=== PATIENT | female | born 1980 | race American Indian/Alaskan Native ===

== ENCOUNTER 2021-02-20 14:08 | Emergency (ER) | payer MEDICAID ==
[2021-02-20 15:09] LABS: Basophils % (Auto) 0.5 % (0.0-1.8); Eosinophils # (Auto) 0.2 K/mm3 (0.0-0.4); Hematocrit 45.3 % (30.3-42.9); Hemoglobin 15.6 gm/dl (10.1-14.3); Lymphocytes # (Auto) 2.8 K/mm3 (1.2-5.4); Lymphocytes % (Auto) 30.3 % (13.4-35.0); Mean Corpuscular HGB Conc 34 % (30-34); Mean Corpuscular Volume 87 fl (79-97); Monocytes # (Auto) 0.5 K/mm3 (0.0-0.8); Monocytes % (Auto) 5.1 % (0.0-7.3); Platelet Count 289 K/mm3 (140-440); Red Blood Count 5.19 M/mm3 (3.65-5.03)
[2021-02-20 15:16] LABS: Alanine Aminotransferase 25 units/L (7-56); Albumin 4.3 g/dL (3.9-5); Blood Urea Nitrogen 7 mg/dL (7-17); Calcium 9.2 mg/dL (8.4-10.2); Hemolysis Index 30
[2021-02-20 15:24] LABS: BUN/Creatinine Ratio 14
[2021-02-20 16:09] LABS: Bacteria,Urine 1+ /HPF (Negative); Bilirubin,Urine NEG (Negative); Blood,Urine NEG (Negative); Color,Urine Yellow (Yellow); Mucus,Urine FEW /HPF; Protein,Urine <15 mg/dL mg/dL (Negative); Urobilinogen,Urine < 2.0 mg/dL (<2.0)
--- NOTE | 2021-02-20 16:50 | Emergency Department Report ---
ED General Adult HPI - General Chief complaint: Medical Clearance Stated complaint: HIGH BLOOD SUGAR Time Seen by Provider: 02/20/21 16:45 Source: patient Mode of arrival: Ambulatory Limitations: No Limitations - History of Present Illness Initial comments: 41-year-old female patient presents with complaints of elevated blood glucose x1 week. She denies any previous history of diabetes, but states that she tested her blood sugar 1 week ago with her sister's machine when she was feeling dizzy. She states her blood glucose at that time was 449. Patient states she noted her glucose to be in the 300s today and called her primary care doctor who ins tructed her to come into the emergency department for treatment. Patient states she is scheduled an appointment with her primary care doctor for this Thursday. She denies any headache, dizziness, chest pain, shortness of breath, urinary symptoms, abdominal pain, or other past medical history. -: Sudden - Related Data Previous Rx's Medication Instructions Recorded Last Taken Type Sulfamethoxazole/Trimethoprim 1 each PO BID 5 Days #10 tablet 02/20/21 Unknown Rx [Bactrim DS TAB] metFORMIN [Glucophage] 500 mg PO QDAY #30 tab 02/20/21 Unknown Rx Allergies Allergy/AdvReac Type Severity Reaction Status Date / Time Penicillins AdvReac Unknown Verified 02/20/21 19:00 prochlorperazine AdvReac Unknown Verified 02/20/21 19:00 [From Compazine] ED Review of Systems ROS: Stated complaint: HIGH BLOOD SUGAR Other details as noted in HPI Constitutional: denies: chills, fever, malaise Respiratory: denies: shortness of breath Cardiovascular: denies: chest pain Gastrointestinal: denies: abdominal pain, nausea, vomiting Genitourinary: denies: dysuria, frequency, hematuria, discharge, abnormal menses, dyspareunia Musculoskeletal: denies: back pain Skin: denies: change in color Neurological: headache. denies: numbness, paresthesias Hematological/Lymphatic: denies: swollen glands ED Past Medical Hx - Past Medical History Previous Medical History?: Yes Hx Asthma: Yes - Surgical History Past Surgical History?: Yes Additional Surgical History: left wrist surgery - Medications Home Medications: Home Medications Medication Instructions Recorded Confirmed Last Taken Type Sulfamethoxazole/Trimethoprim 1 each PO BID 5 Days #10 tablet 02/20/21 Unknown Rx [Bactrim DS TAB] metFORMIN [Glucophage] 500 mg PO QDAY #30 tab 02/20/21 Unknown Rx ED Physical Exam - General Limitations: No Limitations General appearance: alert, in no apparent distress, obese - Head Head exam: Present: atraumatic, normocephalic - Eye Eye exam: Present: normal appearance. Absent: scleral icterus - Neck Neck exam: Present: normal inspection, full ROM - Respiratory Respiratory exam: Present: normal lung sounds bilaterally. Absent: respiratory distress - Cardiovascular Cardiovascular Exam: Present: regular rate, normal rhythm - Extremities Exam Extremities exam: Present: full ROM - Back Exam Back exam: Present: normal inspection, full ROM - Neurological Exam Neurological exam: Present: alert, oriented X3, normal gait - Psychiatric Psychiatric exam: Present: normal affect, normal mood - Skin Skin exam: Present: warm, dry, intact, normal color. Absent: rash ED Course Vital Signs 02/20/21 02/20/21 14:16 20:30 Temperature 98.7 F Pulse Rate 79 84 Respiratory 18 16 Rate Blood Pressure 140/89 [Right] O2 Sat by Pulse 98 99 Oximetry ED Medical Decision Making - Lab Data Result diagrams: 02/20/21 14:31 02/20/21 14:31 Lab Results 02/20/21 02/20/21 02/20/21 Range/Units 14:31 14:31 14:31 WBC 9.2 (4.5-11.0) K/mm3 RBC 5.19 H (3.65-5.03) M/mm3 Hgb 15.6 H (10.1-14.3) gm/dl Hct 45.3 H (30.3-42.9) % MCV 87 (79-97) fl MCH 30 (28-32) pg MCHC 34 (30-34) % RDW 13.0 L (13.2-15.2) % Plt Count 289 (140-440) K/mm3 Lymph % (Auto) 30.3 (13.4-35.0) % Turner % (Auto) 5.1 (0.0-7.3) % Eos % (Auto) 2.0 (0.0-4.3) % Baso % (Auto) 0.5 (0.0-1.8) % Lymph # (Auto) 2.8 (1.2-5.4) K/mm3 Turner # (Auto) 0.5 (0.0-0.8) K/mm3 Eos # (Auto) 0.2 (0.0-0.4) K/mm3 Baso # (Auto) 0.0 (0.0-0.1) K/mm3 Seg Neutrophils % 62.1 (40.0-70.0) % Seg Neutrophils # 5.7 (1.8-7.7) K/mm3 VBG pH (7.320-7.420) Sodium 134 L (137-145) mmol/L Potassium 3.9 (3.6-5.0) mmol/L Chloride 99.3 (98-107) mmol/L Carbon Dioxide 23 (22-30) mmol/L Anion Gap 16 mmol/L BUN 7 (7-17) mg/dL Creatinine 0.5 L (0.6-1.2) mg/dL Estimated GFR > 60 ml/min BUN/Creatinine Ratio 14 % Glucose 357 H (65-100) mg/dL POC Glucose (70-105) mg/dL Calcium 9.2 (8.4-10.2) mg/dL Total Bilirubin 0.70 (0.1-1.2) mg/dL AST 22 (5-40) units/L ALT 25 (7-56) units/L Alkaline Phosphatase 129 (35-129) units/L Total Protein 7.0 (6.3-8.2) g/dL Albumin 4.3 (3.9-5) g/dL Albumin/Globulin Ratio 1.6 % HCG, Quant < 2 (0-4) mIU/mL Urine Color (Yellow) Urine Turbidity (Clear) Urine pH (5.0-7.0) Ur Specific [place] (1.003-1.030) Urine Protein (Negative) mg/dL Urine Glucose (UA) (Negative) mg/dL Urine Ketones (Negative) mg/dL Urine Blood (Negative) Urine Nitrite (Negative) Urine Bilirubin (Negative) Urine Urobilinogen (<2.0) mg/dL Ur Leukocyte Esterase (Negative) Urine WBC (Auto) (0.0-6.0) /HPF Urine RBC (Auto) (0.0-6.0) /HPF U Epithel Cells (Auto) (0-13.0) /HPF Urine Bacteria (Auto) (Negative) /HPF Urine Mucus /HPF 05/10/0102/20/21 02/20/21 Range/Units 14:31 20:31 Unknown WBC (4.5-11.0) K/mm3 RBC (3.65-5.03) M/mm3 Hgb (10.1-14.3) gm/dl Hct (30.3-42.9) % MCV (79-97) fl MCH (28-32) pg MCHC (30-34) % RDW (13.2-15.2) % Plt Count (140-440) K/mm3 Lymph % (Auto) (13.4-35.0) % Turner % (Auto) (0.0-7.3) % Eos % (Auto) (0.0-4.3) % Baso % (Auto) (0.0-1.8) % Lymph # (Auto) (1.2-5.4) K/mm3 Turner # (Auto) (0.0-0.8) K/mm3 Eos # (Auto) (0.0-0.4) K/mm3 Baso # (Auto) (0.0-0.1) K/mm3 Seg Neutrophils % (40.0-70.0) % Seg Neutrophils # (1.8-7.7) K/mm3 VBG pH 7.362 (7.320-7.420) Sodium (137-145) mmol/L Potassium (3.6-5.0) mmol/L Chloride (98-107) mmol/L Carbon Dioxide (22-30) mmol/L Anion Gap mmol/L BUN (7-17) mg/dL Creatinine (0.6-1.2) mg/dL Estimated GFR ml/min BUN/Creatinine Ratio % Glucose (65-100) mg/dL POC Glucose 227 H (70-105) mg/dL Calcium (8.4-10.2) mg/dL Total Bilirubin (0.1-1.2) mg/dL AST (5-40) units/L ALT (7-56) units/L Alkaline Phosphatase (35-129) units/L Total Protein (6.3-8.2) g/dL Albumin (3.9-5) g/dL Albumin/Globulin Ratio % HCG, Quant (0-4) mIU/mL Urine Color Yellow (Yellow) Urine Turbidity Clear (Clear) Urine pH 5.0 (5.0-7.0) Ur Specific [place] 1.036 H (1.003-1.030) Urine Protein <15 mg/dl (Negative) mg/dL Urine Glucose (UA) >=500 (Negative) mg/dL Urine Ketones Tr (Negative) mg/dL Urine Blood Neg (Negative) Urine Nitrite Neg (Negative) Urine Bilirubin Neg (Negative) Urine Urobilinogen < 2.0 (<2.0) mg/dL Ur Leukocyte Esterase Tr (Negative) Urine WBC (Auto) 13.0 H (0.0-6.0) /HPF Urine RBC (Auto) 21.0 (0.0-6.0) /HPF U Epithel Cells (Auto) 4.0 (0-13.0) /HPF Urine Bacteria (Auto) 1+ (Negative) /HPF Urine Mucus Few /HPF - Medical Decision Making 41-year-old female patient presents with complaints of elevated blood glucose x1 week. She denies any previous history of diabetes, but states that she tested her blood sugar 1 week ago with her sister's machine when she was feeling dizzy. She states her blood glucose at that time was 449. Patient states she noted her glucose to be in the 300s today and called her primary care doctor who instructed her to come into the emergency department for treatment. Patient states she is scheduled an appointment with her primary care doctor for this Thursday. She denies any headache, dizziness, chest pain, shortness of breath, urinary symptoms, abdominal pain, or other past medical history. Patient here with new onset diabetes. Blood glucose initially measured at 357. Venous pH is normal. UA shows small UTI. Will start patient on Metformin and prescribed Bactrim for UTI. Patient has a follow-up appointment scheduled in 2 days. Discussed signs and symptoms that should prompt immediate return to the emergency department in detail with patient who verbalizes understanding. She is well-appearing, her vitals are normal, she is stable for discharge home. Critical care attestation.: If time is entered above; I have spent that time in minutes in the direct care of this critically ill patient, excluding procedure time. ED Disposition Clinical Impression: New onset type 2 diabetes mellitus UTI (urinary tract infection) Qualifiers: Urinary tract infection type: acute cystitis Disposition: TO HOME OR SELFCARE Is pt being admited?: No Condition: Stable Instructions: Type 2 Diabetes Mellitus, Diagnosis, Adult, Urinary Tract Infection, Adult, [id number], Type 2 Diabetes Mellitus, Self Care, Adult, Metformin tablets, Diabetes Mellitus and Nutrition, Adult, Diabetes Mellitus Type 2 in Adults (ED) Additional Instructions: Is follow-up with your doctor as scheduled 02/22/2021 Prescriptions: Sulfamethoxazole/Trimethoprim [Bactrim DS TAB] 1 each PO BID 5 Days #10 tablet metFORMIN [Glucophage] 500 mg PO QDAY #30 tab Referrals: MARTIR NIEVES JR, MD [Primary Care Provider] - 3-5 Days Forms: Work/School Release Form(ED)
[2021-02-20] MEDS ORDERED: INSULIN REGULAR, HUMAN 100 UNITS/1 ML ONE (19:03)
[2021-02-20] MEDS ORDERED: SODIUM CHLORIDE 0.9% 1000 ML 1,000 ML ONE (19:03)
[2021-02-20] MEDS ORDERED: SODIUM CHLORIDE 0.9% 1000 ML 1,000 ML IV ONE (19:15)
[2021-02-20] MEDS ORDERED: INSULIN REGULAR, HUMAN 100 UNITS/1 ML SUB-Q ONE (19:30)
[2021-02-20 22:16] VITALS: BP 140/89
== END 2021-02-20 20:30 | disposition home or self-care (01) ==
LOC: ED 14:08
DX: E11.9 Type 2 diabetes mellitus without complications (principal); N39.0 Urinary tract infection, site not specified; J45.909 Unspecified asthma, uncomplicated; Z79.899 Other long term (current) drug therapy
CPT/HCPCS: 36415; 80053; 81001; 82805; 82962; 84702; 85025; 87086; 96360; 96372; 99283; J7030; J1815

== ENCOUNTER 2021-12-30 12:13 | Emergency (ER) | payer MEDICAID ==
[2021-12-30] MEDS ORDERED: SODIUM CHLORIDE 0.9% 1000 ML 1,000 ML IV ONE (15:00)
[2021-12-30 15:17] LABS: Hematocrit 41.6 % (30.3-42.9); Hemoglobin 14.4 gm/dl (10.1-14.3); Mean Corpuscular HGB Conc 35 % (30-34); Mean Corpuscular Volume 86 fl (79-97); Platelet Count 261 K/mm3 (140-440); Red Blood Count 4.85 M/mm3 (3.65-5.03); Red Cell Distribution Width 13.4 % (13.2-15.2)
[2021-12-30] MEDS ORDERED: CLINDAMYCIN 300 MG/50 mL 300 MG/50 ML BAG IV ONE (16:00)
[2021-12-30 16:15] LABS: Alanine Aminotransferase 33 units/L (7-56); Albumin 4.4 g/dL (3.9-5); Blood Urea Nitrogen 6 mg/dL (7-17); Calcium 9.5 mg/dL (8.4-10.2); Hemolysis Index 3
[2021-12-30 16:34] LABS: BUN/Creatinine Ratio 12
[2021-12-30] MEDS ORDERED: LIDOCAINE (1%) 10 MG/1 ML VIAL 20 ML MDV INFILTRATI ONE (18:00)
--- NOTE | 2021-12-30 18:23 | Emergency Department Report ---
Abscess Boil HPI - HPI Chief Complaint: Skin/Abscess/Foreign Body Stated Complaint: LARGE CYST ON BOTTOM Time Seen by Provider: 12/30/21 15:00 Duration: 6 Days Location: Perianal Severity: Moderate History: Yes Pain, Yes Purulent Drainage, No Fever, No Numbness, No Foreign Body, No Previous History, No Insect Bite HPI: Pt c/o abscess on right glute Home Medications: Previous Rx's Medication Instructions Recorded Last Taken Type Sulfamethoxazole/Trimethoprim 1 each PO BID 5 Days #10 tablet 02/20/21 Unknown Rx [Bactrim DS TAB] metFORMIN [Glucophage] 500 mg PO QDAY #30 tab 02/20/21 Unknown Rx Ibuprofen [Motrin] 800 mg PO Q8HR PRN #14 tablet 12/30/21 Unknown Rx clindamycin HCL [Clindamycin HCl] 300 mg PO TID #21 cap 12/30/21 Unknown Rx Allergies/Adverse Reactions: Allergies Allergy/AdvReac Type Severity Reaction Status Date / Time Penicillins AdvReac Unknown Verified 02/20/21 19:00 prochlorperazine AdvReac Unknown Verified 02/20/21 19:00 [From Compazine] ED Review of Systems ROS: Stated complaint: LARGE CYST ON BOTTOM Other details as noted in HPI Constitutional: denies: chills, fever Eyes: denies: eye pain, eye discharge, vision change ENT: denies: ear pain, throat pain Respiratory: denies: cough, shortness of breath, wheezing Cardiovascular: denies: chest pain, palpitations Endocrine: no symptoms reported Gastrointestinal: denies: abdominal pain, nausea, diarrhea Genitourinary: denies: urgency, dysuria, discharge Musculoskeletal: denies: back pain, joint swelling, arthralgia Skin: denies: rash, lesions Neurological: denies: headache, weakness, paresthesias Psychiatric: denies: anxiety, depression Hematological/Lymphatic: denies: easy bleeding, easy bruising ED Past Medical Hx - Past Medical History Hx Diabetes: Yes Hx Deep Vein Thrombosis: No Hx Pulmonary Embolism: No Hx Asthma: Yes - Surgical History Past Surgical History?: Yes Additional Surgical History: left wrist surgery - Social History Smoking Status: Never Smoker Substance Use Type: None - Medications Home Medications: Home Medications Medication Instructions Recorded Confirmed Last Taken Type Sulfamethoxazole/Trimethoprim 1 each PO BID 5 Days #10 tablet 05/12/21 Unknown Rx [Bactrim DS TAB] metFORMIN [Glucophage] 500 mg PO QDAY #30 tab 02/20/21 Unknown Rx Ibuprofen [Motrin] 800 mg PO Q8HR PRN #14 tablet 12/30/21 Unknown Rx clindamycin HCL [Clindamycin HCl] 300 mg PO TID #21 cap 12/30/21 Unknown Rx ED Abscess Boil Physical Exam - Exam General: Vital signs noted. No distress. Alert and acting appropriately. Size: 5 cm Exam: Yes Tenderness, Yes Fluctuance, Yes Surrounding Cellulites/Erythema, Yes Normal Neurologic Exam, Yes Normal Circulation, No Lymphangitis, No Crepitation, No Heart Murmur I & D Note - I & D Note I & D Note: right gluteal bsess. cleaned with betadin . anasthesia local using licoane 5 cc. blade 11, moderate amouht of pus. packed ith .05 inch pplain pack. 'dressed ED Course Vital Signs 12/30/21 12/30/21 12:51 13:16 Temperature 98.5 F Pulse Rate 120 H Respiratory 17 18 Rate Blood Pressure 161/93 O2 Sat by Pulse 93 97 Oximetry Critical care attestation.: If time is entered above; I have spent that time in minutes in the direct care of this critically ill patient, excluding procedure time. ED Medical Decision Making - Lab Data Result diagrams: 12/30/21 15:06 12/30/21 15:06 - Medical Decision Making I and D , fluids and abx given ED Disposition Clinical Impression: Abscess, gluteal, right Disposition: 01 HOME / SELF CARE / HOMELESS Is pt being admited?: No Does the pt Need Aspirin: No Condition: Stable Instructions: Skin Abscess, Incision and Drainage, Care After Prescriptions: clindamycin HCL [Clindamycin HCl] 300 mg PO TID #21 cap Ibuprofen [Motrin] 800 mg PO Q8HR PRN #14 tablet PRN Reason: Pain, Moderate (4-6) Referrals: PRIMARY CARE,MD [Primary Care Provider] - 3-5 Days Time of Disposition: 18:21
[2021-12-30 18:37] VITALS: BP 124/78
== END 2021-12-30 18:34 | disposition home or self-care (01) ==
LOC: ED 12:13
DX: L02.31 Cutaneous abscess of buttock (principal); E11.9 Type 2 diabetes mellitus without complications; J45.909 Unspecified asthma, uncomplicated; Z88.0 Allergy status to penicillin
CPT/HCPCS: 10060; 36415; 80053; 85027; 86140; 96365; 96366; 99283; J3490; J7030; Q0162

== ENCOUNTER 2022-01-01 12:05 | Emergency (ER) | payer MEDICAID ==
--- NOTE | 2022-01-01 17:15 | Emergency Department Report ---
ED Recheck HPI - General Chief Complaint: Skin/Abscess/Foreign Body Stated Complaint: PACKING REMOVAL Time Seen by Provider: 01/01/22 16:28 Source: patient Mode of arrival: Ambulatory Limitations: No Limitations - History of Present Illness Initial Comments: 41-year-old black female presents to the emergency department for recheck of wound. She states that she was seen here on 321 for abscess to perineum area, it was lanced and she was sent home with wound packing. She is here to have packing removed. She states that she has not yet started her p.o. antibiotics that she was previously prescribed because the pharmacy has not been able to fill them yet, but pain and swelling to abscess is significantly improved. States that she has noticed small amount of purulent drainage from area. She denies fever. Complaint: wound re-check Initial Visit For: abscess Returns Today for: wound recheck Symptoms Since Prior Visit: no new symptoms Context: planned re-check Associated Symptoms: denies: fever, chills, chest pain, shortness of breath, rash, malaise, [place], abdominal pain - Related Data Previous Rx's Medication Instructions Recorded Last Taken Type Sulfamethoxazole/Trimethoprim 1 each PO BID 5 Days #10 tablet 02/20/21 Unknown Rx [Bactrim DS TAB] metFORMIN [Glucophage] 500 mg PO QDAY #30 tab 02/20/21 Unknown Rx Ibuprofen [Motrin] 800 mg PO Q8HR PRN #14 tablet 12/30/21 Unknown Rx clindamycin HCL [Clindamycin HCl] 300 mg PO TID #21 cap 12/30/21 Unknown Rx Allergies Allergy/AdvReac Type Severity Reaction Status Date / Time Penicillins AdvReac Unknown Verified 02/20/21 19:00 prochlorperazine AdvReac Unknown Verified 02/20/21 19:00 [From Compazine] ED Review of Systems ROS: Stated complaint: PACKING REMOVAL Other details as noted in HPI Comment: All other systems reviewed and negative Constitutional: denies: chills, fever Respiratory: denies: cough, shortness of breath, SOB with exertion, SOB at rest Cardiovascular: denies: chest pain Gastrointestinal: denies: abdominal pain, nausea, vomiting Genitourinary: denies: urgency, dysuria, frequency, hematuria Musculoskeletal: denies: back pain Neurological: denies: headache, weakness ED Past Medical Hx - Past Medical History Hx Diabetes: Yes Hx Deep Vein Thrombosis: No Hx Pulmonary Embolism: No Hx Asthma: Yes - Surgical History Additional Surgical History: left wrist surgery - Social History Smoking Status: Never Smoker Substance Use Type: None - Medications Home Medications: Home Medications Medication Instructions Recorded Confirmed Last Taken Type Sulfamethoxazole/Trimethoprim 1 each PO BID 5 Days #10 tablet 02/20/21 Unknown Rx [Bactrim DS TAB] metFORMIN [Glucophage] 500 mg PO QDAY #30 tab 02/20/21 Unknown Rx Ibuprofen [Motrin] 800 mg PO Q8HR PRN #14 tablet 12/30/21 Unknown Rx clindamycin HCL [Clindamycin HCl] 300 mg PO TID #21 cap 12/30/21 Unknown Rx ED Physical Exam - General Limitations: No Limitations General appearance: alert, in no apparent distress - Eye Eye exam: Present: normal appearance. Absent: conjunctival injection - Neck Neck exam: Present: normal inspection. Absent: tenderness - Respiratory Respiratory exam: Absent: respiratory distress - Cardiovascular Cardiovascular Exam: Present: tachycardia - GI/Abdominal GI/Abdominal exam: Present: soft. Absent: distended - External exam: Absent: normal external exam (I&D incision noted to right perineum area near buttocks packing in place. Small amount of purulent drainage noted) - Extremities Exam Extremities exam: Present: normal inspection - Back Exam Back exam: Present: normal inspection - Neurological Exam Neurological exam: Present: alert, oriented X3 - Psychiatric Psychiatric exam: Present: normal affect, normal mood - Skin Skin exam: Present: warm, dry, intact, normal color ED Course Vital Signs 01/01/22 01/01/22 12:46 17:34 Temperature 98.6 F Pulse Rate 102 H 90 Respiratory 16 16 Rate Blood Pressure 147/90 136/88 [Left] O2 Sat by Pulse 97 99 Oximetry ED Recheck MDM - Differential Diagnosis Wound Recheck - Medical Decision Making 41-year-old black female presents to the emergency department for recheck of wound. She states that she was seen here on 321 for abscess to perineum area, it was lanced and she was sent home with wound packing. She is here to have packing removed. She states that she has not yet started her p.o. antibiotics that she was previously prescribed because the pharmacy has not been able to fill them yet, but pain and swelling to abscess is significantly improved. States that she has noticed small amount of purulent drainage from area. She denies fever. Wound packing removed. Patient tolerated well. Area expressed noted to have scant amount of purulent drainage. Patient states pain and swelling drastically improved. She was advised to start antibiotics as previously prescribed and follow-up with primary care provider if worsening symptoms or no improvement. She verbalized understanding of and agreement with plan of care. Critical care attestation.: If time is entered above; I have spent that time in minutes in the direct care of this critically ill patient, excluding procedure time. ED Disposition Clinical Impression: Abscess packing removal Disposition: 01 HOME / SELF CARE / HOMELESS Is pt being admited?: No Does the pt Need Aspirin: No Condition: Stable Additional Instructions: Take medication as previously prescribed. With primary care provider if worsening symptoms. Referrals: MARTIR NIEVES JR, MD [Primary Care Provider] - 3-5 Days Time of Disposition: 17:16
[2022-01-01 17:35] VITALS: BP 136/88
== END 2022-01-01 17:35 | disposition home or self-care (01) ==
LOC: ED 12:05
DX: L02.215 Cutaneous abscess of perineum (principal); Z48.00 Encounter for change or removal of nonsurgical wound dressing; I10 Essential (primary) hypertension; Z88.0 Allergy status to penicillin
CPT/HCPCS: 99282